=== PATIENT | female | born 1995 | race African-American/Black ===

== ENCOUNTER 2017-01-05 15:13 | Emergency (ER) | payer OTHER ==
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
[~2017-01-05 15:13] MED LIST: BACTRIM DS TABL1 TA1 PO
== END 2017-01-05 16:36 | disposition home or self-care (01) ==
LOC: CFTX 15:13
DX: S00.83XA Contusion of other part of head, initial encounter (principal); W22.8XXA Striking against or struck by other objects, initial encounter; Y92.099 Unspecified place in other non-institutional residence as the place of occurrence of the external cause
CPT/HCPCS: 70486; 84703; 99283; 99284